=== PATIENT | female | born 1965 | race Caucasian/White ===

== ENCOUNTER 2024-01-03 10:44 | Emergency (ER) | payer BC, OTHER ==
[2024-01-03] MEDS: Ondansetron 4 MG/2 ML SDV IVPUSH ONE (11:25)
[2024-01-03] MEDS: HYDROmorphone 0.5 MG/0.5 ML Syringe IVPUSH ONE ×2 (11:25→12:08)
[2024-01-03 12:12] LABS: BASOPHILS PERCENT AUTO 0.5 % (0.0-1.0); EOSINOPHILS ABSOLUTE AUTO 0.1 K/mm3 (0.0-0.4); HEMATOCRIT 40.5 % (37.0-47.0); HEMOGLOBIN 13.1 gm/dl (12.0-16.0); IMMATURE GRAN ABSOLUTE AUTO 0.03 K/mm3 (0.00-0.05); IMMATURE GRAN PERCENT AUTO 0.5 % (0.0-0.4); LYMPHOCYTES ABSOLUTE AUTO 0.9 K/mm3 (1.0-4.8); LYMPHOCYTES PERCENT AUTO 13.2 % (24.0-44.0); MEAN CORPUSCULAR HEMOGLOBIN 25.9 pg (28.0-32.0); MEAN CORPUSCULAR HGB CONC 32.3 g/dl (32.0-36.0); MEAN CORPUSCULAR VOLUME 80.2 fl (83.0-99.0); MEAN PLATELET VOLUME 10.7 fl (9.4-12.3); MONOCYTES ABSOLUTE AUTO 0.4 K/mm3 (0.0-0.8); MONOCYTES PERCENT AUTO 5.6 % (0.0-8.0); NEUTROPHILS PERCENT AUTO 78.2 % (41.0-71.0); PLATELET COUNT,PLT 111 K/mm3 (150-400); RED BLOOD CELL COUNT 5.05 M/mm3 (4.10-5.30); WHITE BLOOD CELL COUNT,WBC 6.42 K/mm3 (3.9-11.3)
[2024-01-03 12:30] LABS: A/G RATIO 0.8 (1-2); ALBUMIN 3.2 g/dl (3.4-5.0); ANION GAP 12.1 (5-15); BILIRUBIN TOTAL 0.8 mg/dL (0.2-1.0); BUN/CREATININE RATIO 15.6 (14-18); CALCIUM 8.6 mg/dL (8.5-10.1); CREATININE 0.9 mg/dL (0.55-1.02); EST CRCL DRUG DOSING (CG) 57.4 mL/min
[2024-01-03 12:32] LABS: POTASSIUM,K 4.1 mEq/L (3.5-5.1)
== END 2024-01-03 14:08 ==
LOC: JD.ED 10:44
DX: S42.211A Unspecified displaced fracture of surgical neck of right humerus, initial encounter for closed fracture (principal); S42.201A Unspecified fracture of upper end of right humerus, initial encounter for closed fracture; S43.014A Anterior dislocation of right humerus, initial encounter; W18.40XA Slipping, tripping and stumbling without falling, unspecified, initial encounter; Y92.480 Sidewalk as the place of occurrence of the external cause; Z88.2 Allergy status to sulfonamides
CPT/HCPCS: 36415; 73030; 73200; 80053; 85025; 96374; 96375; 96376; 99285; J1170; J2405; J3360; 99284

== ENCOUNTER 2024-04-06 12:20 | Emergency (ER) | payer BC ==
[2024-04-06 14:55] LABS: BASOPHILS PERCENT AUTO 0.5 % (0.0-1.0); EOSINOPHILS ABSOLUTE AUTO 0.2 K/mm3 (0.0-0.4); EOSINOPHILS PERCENT AUTO 2.6 % (0.0-6.0); HEMATOCRIT 40.1 % (37.0-47.0); HEMOGLOBIN 12.9 gm/dl (12.0-16.0); IMMATURE GRAN ABSOLUTE AUTO 0.04 K/mm3 (0.00-0.05); IMMATURE GRAN PERCENT AUTO 0.5 % (0.0-0.4); LYMPHOCYTES ABSOLUTE AUTO 0.9 K/mm3 (1.0-4.8); LYMPHOCYTES PERCENT AUTO 11.8 % (24.0-44.0); MEAN CORPUSCULAR HEMOGLOBIN 24.9 pg (28.0-32.0); MEAN CORPUSCULAR HGB CONC 32.2 g/dl (32.0-36.0); MEAN CORPUSCULAR VOLUME 77.3 fl (83.0-99.0); MEAN PLATELET VOLUME 10.1 fl (9.4-12.3); MONOCYTES ABSOLUTE AUTO 0.7 K/mm3 (0.0-0.8); MONOCYTES PERCENT AUTO 9.4 % (0.0-8.0); NEUTROPHILS ABSOLUTE AUTO 5.8 K/mm3 (1.8-7.7); NEUTROPHILS PERCENT AUTO 75.2 % (41.0-71.0); RED BLOOD CELL COUNT 5.19 M/mm3 (4.10-5.30); WHITE BLOOD CELL COUNT,WBC 7.74 K/mm3 (3.9-11.3)
[2024-04-06 14:56] LABS: PLATELET COUNT,PLT 190 K/mm3 (150-400)
[2024-04-06] MEDS: Sodium Chloride 0.9% 10 ML Syringe FLUSH ONE (15:51)
[2024-04-06] MEDS: Iopamidol 755 Mg/ML 100 ML Bottle IVPUSH ONE (15:51)
[2024-04-06 15:54] LABS: A/G RATIO 0.7 (1-2); ALBUMIN 2.8 g/dl (3.4-5.0); ANION GAP 10.1 (5-15); BUN/CREATININE RATIO 13.8 (14-18); C-REACTIVE PROTEIN 9.81 mg/dL (<0.30); CALCIUM 8.8 mg/dL (8.5-10.1); CREATININE 0.8 mg/dL (0.55-1.02); EST CRCL DRUG DOSING (CG) 61.86 mL/min; POTASSIUM,K 4.1 mEq/L (3.5-5.1); PROTEIN TOTAL,TP 7.1 g/dl (6.4-8.2)
[2024-04-06] MEDS: Linezolid 600 MG in Premix Bag 1 BAG IV ONE (17:34)
[2024-04-06 18:03] LABS: LACTIC ACID 1.2 mmol/L (0.4-2.0)
== END 2024-04-06 18:50 | disposition home or self-care (01) ==
LOC: JD.ED 12:20
DX: L03.116 Cellulitis of left lower limb (principal); L08.9 Local infection of the skin and subcutaneous tissue, unspecified; Z88.2 Allergy status to sulfonamides
CPT/HCPCS: 36415; 73701; 80053; 83605; 85025; 85652; 86140; 87040; 96365; 99284; J2020; J3490; Q9967

== ENCOUNTER 2024-04-12 08:12 | Day surgery (SDC) | payer BC ==
[~2024-04-12 08:12] MED LIST: EPINEPHrine 1 MG/ML SDV ONE
[2024-04-12] MEDS: Lactated Ringers 1,000 ML IV SCH (08:40)
[2024-04-12] MEDS ORDERED: Ondansetron 4 MG/2 ML SDV IVPUSH PRN (09:08)
[2024-04-12] MEDS ORDERED: Sodium Chloride 0.9% 10 ML Syringe FLUSH PRN (09:08)
[2024-04-12] MEDS ORDERED: Ketamine 500 mg/10 ML MDV ONE (09:12)
[2024-04-12] MEDS ORDERED: Propofol 200 MG/20 ML SDV ONE ×5 (09:12→10:01)
[2024-04-12] MEDS ORDERED: Midazolam 1 MG/ML 2 ML SDV ONE (09:12)
[2024-04-12] MEDS ORDERED: fentaNYL 100 MCG/2 ML SDV ONE (09:46)
[2024-04-12] MEDS ORDERED: ceFAZolin 2 GM Vial ONE (09:50)
[2024-04-12] MEDS: Bupivacaine 0.25% 10 ML SDV ONE (10:05)
[2024-04-12] MEDS ORDERED: Ropivacaine 0.5% 5 MG/ML 30 ML SDV ONE (10:38)
[2024-04-12] MEDS: fentaNYL 100 MCG/2 ML SDV IVPUSH PRN (10:47)
[2024-04-12] MEDS: HYDROmorphone 0.5 MG/0.5 ML Syringe IVPUSH PRN (11:14)
[2024-04-12] MEDS: Acetaminophen/HYDROcodone 325-5 MG Tab PO PRN (11:50)
[2024-04-12] MEDS ORDERED: Sodium Chloride 0.9% 10 ML Syringe FLUSH SCH (21:00)
== END 2024-04-12 14:50 | disposition home or self-care (01) ==
LOC: JD.SDS 08:12
PROVIDERS: ATTEND Orthopaedic Surgery
DX: M70.42 Prepatellar bursitis, left knee (principal); L03.116 Cellulitis of left lower limb; J45.909 Unspecified asthma, uncomplicated; E11.9 Type 2 diabetes mellitus without complications; E78.5 Hyperlipidemia, unspecified; I10 Essential (primary) hypertension; E66.9 Obesity, unspecified; Z68.41 Body mass index [BMI] 40.0-44.9, adult; Z79.899 Other long term (current) drug therapy; Z79.82 Long term (current) use of aspirin
CPT/HCPCS: 27340; 97110; 97161; A9270; J0665; J0690; J1170; J2250; J2704; J2795; J3010; J3490; J7120; 01320; J0171